=== PATIENT | female | born 1955 | race American Indian/Alaskan Native ===

== ENCOUNTER 2021-01-08 06:44 | Emergency (ER) | payer MEDICARE ==
--- NOTE | 2021-01-08 08:11 | Emergency Department Report ---
Blank Doc - Documentation Documentation: This is a 65-year-old female that presents with right leg pain, swelling, with decreased right foot pulses. 1- This is a initial triage assessment/medical screening only. Full assessment and work-up will be completed once the patient is in proper hospital gown, ED bed and in a private room setting. This initial assessment/diagnostic orders/clinical plan/ treatment(s) is/are subject to change based on pt's health status, clinical progression and re-assessment by fellow clinical providers in the ED. Further treatment and workup at subsequent clinical providers discretion. Patient/guardians urged not to elope from ED as their condition may be serious if not clinically assessed and managed. 2-labs 3-DVT study with Doppler ultrasound 4-patient most likely needs a rundown CT with contrast of right leg 5- research associate professor notified to have the patient be brought back [facility]
[2021-01-08 08:13] LABS: Basophils % (Auto) 0.7 % (0.0-1.8); Eosinophils # (Auto) 0.1 K/mm3 (0.0-0.4); Hematocrit 36.1 % (30.3-42.9); Hemoglobin 11.9 gm/dl (10.1-14.3); Lymphocytes # (Auto) 3.5 K/mm3 (1.2-5.4); Lymphocytes % (Auto) 48.1 % (13.4-35.0); Mean Corpuscular HGB Conc 33 % (30-34); Mean Corpuscular Volume 86 fl (79-97); Monocytes # (Auto) 0.6 K/mm3 (0.0-0.8); Monocytes % (Auto) 7.9 % (0.0-7.3); Platelet Count 160 K/mm3 (140-440); Red Blood Count 4.19 M/mm3 (3.65-5.03); Red Cell Distribution Width 16.8 % (13.2-15.2)
[2021-01-08 08:34] LABS: Alanine Aminotransferase 6 units/L (7-56); Albumin 3.6 g/dL (3.9-5); Blood Urea Nitrogen 7 mg/dL (7-17); Calcium 9.7 mg/dL (8.4-10.2); Hemolysis Index 10
[2021-01-08 08:52] LABS: BUN/Creatinine Ratio 12
--- NOTE | 2021-01-08 10:41 | Vascular Lab Report ---
. DUPLEX DOPPLER LOWER EXTREMITY VEINS, RIGHT INDICATION / CLINICAL INFORMATION: right leg pain and swelling. TECHNIQUE: Duplex doppler imaging was performed through the veins of the right lower extremity using venous comp ression and other maneuvers. COMPARISON: None available. FINDINGS: RIGHT COMMON FEMORAL VEIN: Negative. RIGHT FEMORAL VEIN: Negative. RIGHT POPLITEAL VEIN: Negative. RIGHT CALF VEINS: Negative. ADDITIONAL FINDINGS: None. IMPRESSION: 1. No sonographic evidence for DVT in the right lower extremity. Signer Name: Tip Wagoner MD Signed: 01/08/2021 10:37 AM Workstation Name: [id number]
--- NOTE | 2021-01-08 17:14 | Emergency Department Report ---
ED Extremity Problem HPI - General Chief complaint: Extremity Injury, Lower Stated complaint: LEG SWOLLEN Time Seen by Provider: 01/08/21 07:35 Source: patient Mode of arrival: Ambulatory Limitations: No Limitations - History of Present Illness Initial comments: 65-year-old female presents to the ER today with complaints of right leg swelling. She states that she noticed it about 2 weeks ago. She states that still a bit sore, but otherwise no significant pain to the leg. She denies any recent injuries. She does admit that she do a lot of standing. Patient reports a history of peripheral vascular disease, she states that she had surgery for pe ripheral vascular disease about 2 years ago. She states that she has had some swelling to the left lower leg since her surgery, but she feels like in the past 2 weeks associated swelling has increased. She denies any redness or bruising. She denies any numbness, tingling, or altered temperature to the leg. She denies any associated chest pain or shortness of breath. She states that she is on "a blood thinner" and she has been compliant with it. Complaint: extremity swelling -: Gradual - Related Data Allergies Allergy/AdvReac Type Severity Reaction Status Date / Time No Known Allergies Allergy Unverified 01/08/21 07:29 ED Review of Systems ROS: Stated complaint: LEG SWOLLEN Other details as noted in HPI Comment: All other systems reviewed and negative Constitutional: denies: chills, fever Eyes: denies: eye pain, eye discharge, vision change ENT: denies: ear pain, throat pain, dental pain, hearing loss, epistaxis Respiratory: denies: cough, shortness of breath, SOB with exertion, SOB at rest, wheezing Cardiovascular: denies: chest pain, palpitations Genitourinary: denies: urgency, dysuria, frequency, hematuria, discharge Musculoskeletal: other (Right lower extremity swelling) Skin: denies: rash, lesions, change in hair/nails, pruritus Neurological: denies: headache, weakness, paresthesias Psychiatric: denies: anxiety, depression ED Past Medical Hx - Past Medical History Previous Medical History?: No - Surgical History Additional Surgical History: RIGHT LEG ED Physical Exam - General Limitations: No Limitations General appearance: alert, in no apparent distress - Head Head exam: Present: atraumatic, normocephalic, normal inspection - Neck Neck exam: Present: normal inspection, full ROM - Respiratory Respiratory exam: Present: normal lung sounds bilaterally. Absent: respiratory distress, wheezes, rales, rhonchi - Cardiovascular Cardiovascular Exam: Present: regular rate, normal rhythm, normal heart sounds - Extremities Exam Extremities exam: Present: full ROM, normal capillary refill (With a faint dorsalis pedis pulse), other (There is mild to moderate swelling noted to the right calf when compared to the left; swelling is soft, nonpitting and there is no tenderness to calf. She has chronic hyperpigmented skin discoloration but otherwise temperature to the leg is normal. No erythema or bruising. ). Absent: tenderness, calf tenderness - Neurological Exam Neurological exam: Present: alert, oriented X3, CN II-XII intact, normal gait - Psychiatric Psychiatric exam: Present: normal affect, normal mood - Skin Skin exam: Present: intact ED Course Vital Signs 01/08/21 01/08/21 07:31 17:22 Temperature 97.6 F 97.5 F L Pulse Rate 82 88 Respiratory 20 16 Rate Blood Pressure 147/92 Blood Pressure 165/86 [Right] O2 Sat by Pulse 92 98 Oximetry ED Medical Decision Making - Lab Data Result diagrams: 01/08/21 07:51 01/08/21 07:51 - Medical Decision Making Venous Doppler of the right lower extremities negative for DVT. Labs reviewed and show nothing acute. Her history, physical exam and current condition does not suggest cellulitis, acute arterial occlusion, compartment syndrome or any other emergent conditions warranting additional testing at this time. She is well-appearing, not toxic and not in any acute distress. She is neurologically intact with a normal gait in the ER. Discussed lab and ultrasound results with patient. Recommend to follow-up with her vascular surgeon or primary care doctor for arterial studies as her swelling could be related to her history of PVD and recommend elevating her leg as often as possible and can continue to be compliant with her medications. Patient expressed understanding of all instructions and agree with plan. Patient was stable at time of discharge Critical care attestation.: If time is entered above; I have spent that time in minutes in the direct care of this critically ill patient, excluding procedure time. ED Disposition Clinical Impression: Leg swelling, PVD (peripheral vascular disease) Disposition: HOME / SELF CARE / HOMELESS Is pt being admited?: No Does the pt Need Aspirin: No Condition: Stable Instructions: Peripheral Vascular Disease, [id number], Peripheral Edema Additional Instructions: I recommend that you elevate your leg as often as possible. Recommend that you follow-up with your primary care doctor or vascular doctor for arterial ultrasounds. Continue taking your antiplatelet therapy daily. Return to the ER if your symptoms changes or worsens in any way. Referrals: MOISES RAM [Primary Care Provider] - 3-5 Days Time of Disposition: 17:17
[2021-01-08 17:24] VITALS: BP 165/86
== END 2021-01-08 16:20 | disposition home or self-care (01) ==
LOC: ED 06:44
DX: M79.89 Other specified soft tissue disorders (principal); I73.9 Peripheral vascular disease, unspecified
CPT/HCPCS: 36415; 80053; 85025; 99284